=== PATIENT | female | born 1980 | race Caucasian/White ===

== ENCOUNTER 2024-04-06 17:26 | Emergency (ER) | payer SELFPAY ==
[~2024-04-06] VITALS: Ht 147.3 cm; Wt 64.0 kg
[2024-04-06 18:06] VITALS: BP 119/86; PULSE 88; RESP 16; TEMP 98; O2SAT 100
[2024-04-06] MEDS: ACETAMINOPHEN 325MG TABLET PO ONE (21:45)
== END 2024-04-06 21:45 | disposition home or self-care (01) ==
LOC: ER 17:26
DX: N64.4 Mastodynia (principal); Z90.49 Acquired absence of other specified parts of digestive tract
CPT/HCPCS: 76642; 81025; 99284

== ENCOUNTER 2025-03-06 20:57 | Emergency (ER) | payer MEDICARE ==
[~2025-03-06] VITALS: Ht 144.8 cm; Wt 68.0 kg
[2025-03-06 21:07] VITALS: O2SAT 99
[2025-03-06 23:59] LABS: CLARITY URINE CLEAR (CLEAR); COLOR URINE YELLOW (YELLOW); GLUCOSE URINE NEGATIVE (NEGATIVE); KETONES URINE NEGATIVE (NEGATIVE); LEUKOCYTE ESTERASE URINE NEGATIVE (NEGATIVE); NITRITE URINE NEGATIVE (NEGATIVE); OCCULT BLOOD URINE NEGATIVE (NEGATIVE); PH URINE 5.5 (4.5-8.0); PROTEIN URINE TRACE (NEGATIVE); SPECIFIC GRAVITY URINE 1.007 (1.005-1.030); UROBILINOGEN URINE 0.2 E.U./dL (0.2-1.0)
[2025-03-07] MEDS ORDERED: NAPR-1176 MT (00:23)
[2025-03-07] MEDS ORDERED: LIDO-53 TP (00:23)
[2025-03-07] MEDS: KETOROLAC 15MG/ML VIAL IM ONE (01:04)
[2025-03-07] MEDS: LIDOCAINE 5% PATCH TOP SCH (01:04)
[2025-03-07 01:17] VITALS: BP 149/83; PULSE 76; RESP 18; TEMP 36.8; O2SAT 100
[2025-03-07 01:35] LABS: RBC URINE 0-2 /hpf (0-2); SQUAMOUS EPITHELIAL CELL URINE FEW /lpf (RARE/1+)
[2025-03-07 01:36] LABS: BACTERIA URINE NONE SEEN
== END 2025-03-07 01:23 | disposition home or self-care (01) ==
LOC: ER 20:57
DX: M54.50 Low back pain, unspecified (principal); Z90.49 Acquired absence of other specified parts of digestive tract
CPT/HCPCS: 99283; 81003; 81025; 96372; J1885